=== PATIENT | female | born 1995 | race Caucasian/White ===

== ENCOUNTER 2017-03-05 19:22 | Emergency (ER) | payer OTHER ==
[2017-03-05 19:29] VITALS: RESP 16
[2017-03-05 20:05] LABS: COLOR YELLOW; LEUKOCYTE ESTERASE,URINE NEGATIVE (NEGATIVE); NITRITE,URINE NEGATIVE (NEGATIVE)
--- NOTE | 2017-03-05 20:06 | EDPHY ---
H & P Time Seen by Provider: 03/05/17 19:36 HPI/ROS: CHIEF COMPLAINT: Left-sided back pain HISTORY OF PRESENT ILLNESS: Patient is a 22-year-old female who presents emergency department with left-sided back pain. She can't point to a specific spot that causes her discomfort. She states that is not necessarily associated with movement or back pain. She denies any fevers or chills. No radiation of pain down her leg. She has no dysuria or frequency. No hematuria. No weakness or numbness. No incontinence of urine or stool. REVIEW OF SYSTEMS: My complete review of systems is negative except as mentioned in the HPI. Past Medical/Surgical History: Hypothyroidism, kidney stones Past surgical history: Includes appendectomy Smoking Status: Never smoked Physical Exam: Vitals noted GENERAL: Well-appearing, in no acute distress, alert. HEENT: Eyes normal to inspection, normal pharynx, no signs of dehydration. NECK: No thyromegaly, no lymphadenopathy, supple. RESPIRATORY: Clear to auscultation bilaterally, no rales, rhonchi or wheezing. CVS: Regular rate and rhythm, no rubs, murmurs, or gallops. ABDOMEN: Soft, nontender, nondistended, no organomegaly. BACK: Normal to inspection, no CVA tenderness. Left lower back tenderness palpation of replicates her pain. Is no palpable mass that location. SKIN: Normal color, no rash, warm, dry. No pallor. EXTREMITIES: No pedal edema, no calf tenderness, no Homans sign or cords, no joint swelling. NEURO/PSYCH: Alert and oriented x3, normal mood and affect, normal motor sensory exam. Constitutional: Initial Vital Signs Temperature (C) 37 C 03/05/17 19:26 Heart Rate 79 03/05/17 19:26 Respiratory Rate 16 03/05/17 19:26 Blood Pressure 123/83 H 03/05/17 19:26 O2 Sat (%) 95 03/05/17 19:26 O2 Delivery Mode Room Air Allergies/Adverse Reactions: No Known Allergies Allergy (Verified 03/05/17 19:30) Home Medications: Medication Instructions Recorded Cyclobenzaprine [Flexeril] 10 mg PO TID #15 tab 03/05/17 Hydrocodone/APAP 5/325 [[place] 1 - 2 tab PO Q4 #13 tab 03/05/17 5/325 (RX)] Medical Decision Making ED Course/Re-evaluation: In the emergency department I discussed possible etiologies with the patient. I answered all her questions. A UA was sent. UA negative. I discussed the results with the patient. On repeat exam she appeared comfortable. She had no focal deficits. She had no tenderness of abdomina exam. I gave the patient warnings prior to leaving. She will return with worsening symptoms. Differential Diagnosis: My differential includes but is not limited to urinary tract infection, pyelonephritis, disc herniation, musculoskeletal strain, spinal stenosis, mass, malignancy - Data Points Laboratory Results: 03/05/17 19:40 Urine Color YELLOW Urine Appearance CLEAR Urine pH 7.0 (5.0-7.5) Ur Specific [place] 1.018 (1.002-1.030) Urine Protein NEGATIVE (NEGATIVE) Urine Ketones NEGATIVE (NEGATIVE) Urine Blood NEGATIVE (NEGATIVE) Urine Nitrate NEGATIVE (NEGATIVE) Urine Bilirubin NEGATIVE (NEGATIVE) Urine Urobilinogen NEGATIVE EU EU (0.2-1.0) Ur Leukocyte Esterase NEGATIVE (NEGATIVE) Ur Culture Indicated? NOT INDICATED (NI) Urine Glucose NEGATIVE (NEGATIVE) Departure - Departure Disposition: Home, Routine, Self-Care Clinical Impression: Back pain Qualifiers: Back pain location: low back pain Chronicity: acute Back pain laterality: left Sciatica presence: without sciatica Qualified Code(s): M54.5 - Low back pain Condition: Good Instructions: Acute Low Back Pain (ED) Additional Instructions: Return with increasing back pain, fever, shortness of breath, pain with urination or any other concerns. Referrals: Uzma Hilario MD [Medical Doctor] - 1-2 days without fail Prescriptions: Cyclobenzaprine [Flexeril] 10 mg PO TID #15 tab Hydrocodone/APAP 5/325 [[place] 5/325 (RX)] 1 - 2 tab PO Q4 #13 tab
[2017-03-05 21:55] VITALS: BP 119/77; PULSE 61; TEMP 98.1; O2SAT 96
== END 2017-03-05 21:54 | disposition home or self-care (01) ==
DX: M54.5 Low back pain (principal)

== ENCOUNTER 2017-08-18 20:04 | Emergency (ER) | payer OTHER ==
[2017-08-18 20:10] VITALS: BP 131/83; PULSE 85; RESP 16; TEMP 97.5; O2SAT 96
[2017-08-18] MEDS ORDERED: ONDANSETRON DISINTEGRATING 4 MG TAB PO ONE (20:26)
[2017-08-18] MEDS ORDERED: ONDANSETRON DISINTEGRATING 4 MG TAB ONE (20:26)
[2017-08-18] MEDS ORDERED: ONDANSETRON 4MG PREPACK#2 BTL TAKEHOME ONE (20:28)
--- NOTE | 2017-08-18 20:30 | EDPHY ---
H & P Time Seen by Provider: 08/18/17 20:15 HPI/ROS: CHIEF COMPLAINT: Nausea, diarrhea HISTORY OF PRESENT ILLNESS: 22-year-old female presents with nausea and diarrhea. Onset of nausea at 6:00 p.m. (2hrs ago). She ate after the nausea started and felt worse. This was followed by 1 episode of diarrhea. She also has mild crampy abdominal pain. No fever or vomiting. No known ill contacts or bad food exposure. No recent foreign travel. REVIEW OF SYSTEMS: Constitutional: No fever, no chills Eyes: No drainage ENT: No sore throat Respiratory: No cough, no shortness of breath Cardiac: No chest pain Genitourinary: no dysuria Musculoskeletal: No leg pain or swelling Skin: No rash Neurological: No headache Psychiatric: No depression Past Medical/Surgical History: Appendectomy Social History: Student at [employer] Smoking Status: Never smoked Physical Exam: General Appearance: Alert, pleasant Eyes: Pupils equal and round, no conjunctival pallor ENT, Mouth: Mucous membranes moist Neck: Normal inspection Respiratory: Lungs are clear to auscultation Cardiovascular: Regular rate and rhythm Gastrointestinal: Abdomen is soft and nontender Neurological: alert, nonfocal exam Skin: Warm and dry Extremities: normal inspection Psychiatric: Mood and affect normal Constitutional: Initial Vital Signs Temperature (C) 36.4 C 08/18/17 20:07 Heart Rate 85 08/18/17 20:07 Respiratory Rate 16 08/18/17 20:07 Blood Pressure 131/83 H 08/18/17 20:07 O2 Sat (%) 96 08/18/17 20:07 O2 Delivery Mode Room Air Allergies/Adverse Reactions: No Known Allergies Allergy (Verified 08/18/17 20:10) Home Medications: Medication Instructions Recorded NK [No Known Home Meds] 08/18/17 Medical Decision Making ED Course/Re-evaluation: This patient presents with nausea and diarrhea, most likely secondary to gastroenteritis. Zofran 4 mg ODT given. Abdominal pain precautions given. Differential Diagnosis: Differential diagnosis includes though it is not limited to appendicitis, cholecystitis, diverticulitis, pyelonephritis, bowel perforation, small bowel obstruction. - Data Points Medications Given: Discontinued Medications Ondansetron HCl (Zofran Odt) 4 mg PO EDNOW ONE Stop: 08/18/17 20:27 Last Admin: 08/18/17 20:27 Dose: 4 mg Departure - Departure Disposition: Home, Routine, Self-Care Clinical Impression: Acute gastroenteritis Condition: Good Instructions: Gastroenteritis (ED) Additional Instructions: Clear liquids for 24 hours. Advance diet as tolerated. Take Imodium as needed for diarrhea as directed on the package label. Referrals: Meghann Damico PA [Primary Care Provider] - As per Instructions
== END 2017-08-18 20:42 | disposition home or self-care (01) ==
DX: K52.9 Noninfective gastroenteritis and colitis, unspecified (principal); Z90.49 Acquired absence of other specified parts of digestive tract

== ENCOUNTER 2017-10-14 10:14 | Emergency (ER) | payer OTHER ==
[2017-10-14 10:26] VITALS: RESP 16
[2017-10-14] MEDS ORDERED: NS 1,000 ML IV ONE (10:48)
--- NOTE | 2017-10-14 10:48 | EDPHY ---
General Narrative: CHIEF COMPLAINT: Sore throat, fever, headache, nausea HISTORY OF PRESENT ILLNESS: Patient complains of sore throat, headache, fever, nausea, body aches, chills. Symptoms started yesterday morning abruptly. They have been constant duration. [id number] 1st. Now worsening. Nausea has been improved with leftover Zofran ODT from previous prescription. No neck pain or stiffness. The headache is associated with the cough. The cough is mostly nonproductive. She does have yellow to green sinus drainage. No chest pain. No abdominal pain. No urinary complaints. No other associated complaints or modifying factors. REVIEW OF SYSTEMS: Ten systems reviewed and are negative unless otherwise noted in the HPI PCP: Dr. Damico SPECIALISTS: None PAST MEDICAL HISTORY: Hypothyroid not taking medication PAST SURGICAL HISTORY: Appendectomy remotely SOCIAL HISTORY: Nonsmoker. Currently master's Student in engineering FAMILY HISTORY: Noncontributory EXAMINATION General Appearance: Alert, no distress Head: normocephalic, atraumatic. Head cover left in place Eyes: Pupils equal and round, no conjunctival pallor or injection. No icterus ENT, Mouth: Mucous membranes moist. Mild posterior erythema. Mild exudate. Uvula is midline. Airway is widely patent Neck: Midline trachea. Normal inspection, supple, non-tender. Painless range of motion in all planes. No meningeal signs Respiratory: Lungs are clear to auscultation. No wheezing, rhonchi or crackles Cardiovascular: Regular rate and rhythm. No murmur Gastrointestinal: Abdomen is soft and nontender. No tympany. No rigidity. No distention. Neurological: A&O, nonfocal, strength is symmetric. Skin: Warm and dry, no rash. No petechiae or purpura Extremities: Nontender, no pedal edema. Psychiatric: Mood and affect normal DIFFERENTIAL DIAGNOSES: Including but not limited to influenza, viral illness, strep pharyngitis, infectious mononucleosis, meningitis MDM: 10:40 a.m. Flu-like symptoms with mild tachycardia. She is not tachypneic. She is not hypoxic or hypotensive. She does have an examination match is this. Laboratory studies ordered. Influenza test ordered. She is resting comfortably in no acute distress. 11:30 a.m. Patient re-evaluated. Vital signs stable with mild tachycardia. Laboratory studies reveal mild leukocytosis. Flu test pending. 12:25 p.m. Patient re-evaluated. Throat is still moderately to significantly painful. Mild headache. Neck remains supple without meningismus. Given her leukocytosis and sore throat with erythema and exudate, will treat her presumptively pending the PCR test of the strep pharyngitis. We discussed discharge home with antibiotic, nausea medicine and continuation of over-the- counter anti-inflammatories. She will contact her primary care physician tomorrow for outpatient follow-up. ED precautions discussed for worsening headache, any neck pain or stiffness. She is comfortable this plan and discharged in stable condition. - History Smoking Status: Never smoked - Objective Vital Signs: Initial Vital Signs Temperature (C) 99.3 F 10/14/17 10:23 Heart Rate 107 H 10/14/17 10:23 Respiratory Rate 16 10/14/17 10:23 Blood Pressure 117/72 10/14/17 10:23 O2 Sat (%) 98 10/14/17 10:23 O2 Delivery Mode Room Air Allergies/Adverse Reactions: No Known Allergies Allergy (Verified 08/18/17 20:10) Home Medications: Medication Instructions Recorded Acetaminophen/Codeine 300/30Mg 1 each PO Q6 PRN #15 tab 10/14/17 [Tylenol #3 (*)] Azithromycin [Zithromax] 250 mg PO DAILY #6 tab 10/14/17 Promethazine HCl [Phenergan 25mg 25 mg PO Q8 PRN #13 tab 10/14/17 (*)] Laboratory Results: Laboratory Results 10/14/17 11:05 10/14/17 11:05 10/14/17 10/14/17 10/14/17 Unknown 11:05 11:05 WBC RBC Hgb Hct MCV MCH MCHC RDW Plt Count MPV Neut % (Auto) Lymph % (Auto) White % (Auto) Eos % (Auto) Baso % (Auto) Nucleat RBC Rel Count Absolute Neuts (auto) Absolute Lymphs (auto) Absolute Monos (auto) Absolute Eos (auto) Absolute Basos (auto) Absolute Nucleated RBC Immature Gran % Immature Gran # Sodium Potassium Chloride Carbon Dioxide Anion Gap BUN Creatinine Estimated GFR Glucose Calcium Beta HCG, Qual NEGATIVE Nasal Influenza A PCR NEGATIVE FOR FLU A (NEGATIVE) Nasal Influenza B PCR NEGATIVE FOR FLU B (NEGATIVE) Monoscreen NEGATIVE (NEGATIVE) Group A Strep Screen NEGATIVE (NEGATIVE) Group A Strep DNA Pending 10/14/17 10/14/17 11:05 11:05 WBC 15.53 10^3/uL H 10^3/uL (3.80-9.50) RBC 4.66 10^6/uL 10^6/uL (4.18-5.33) Hgb 14.6 g/dL g/dL (12.6-16.3) Hct 41.5 % % (38.0-47.0) MCV 89.1 fL fL (81.5-99.8) MCH 31.3 pg pg (27.9-34.1) MCHC 35.2 g/dL g/dL (32.4-36.7) RDW 13.2 % % (11.5-15.2) Plt Count 187 10^3/uL 10^3/uL (150-400) MPV 11.7 fL fL (8.7-11.7) Neut % (Auto) 85.3 % H % (39.3-74.2) Lymph % (Auto) 7.7 % L % (15.0-45.0) White % (Auto) 6.2 % % (4.5-13.0) Eos % (Auto) 0.1 % L % (0.6-7.6) Baso % (Auto) 0.2 % L % (0.3-1.7) Nucleat RBC Rel Count 0.0 % % (0.0-0.2) Absolute Neuts (auto) 13.25 10^3/uL H 10^3/uL (1.70-6.50) Absolute Lymphs (auto) 1.20 10^3/uL 10^3/uL (1.00-3.00) Absolute Monos (auto) 0.97 10^3/uL H 10^3/uL (0.30-0.80) Absolute Eos (auto) 0.01 10^3/uL L 10^3/uL (0.03-0.40) Absolute Basos (auto) 0.03 10^3/uL 10^3/uL (0.02-0.10) Absolute Nucleated RBC 0.00 10^3/uL 10^3/uL (0-0.01) Immature Gran % 0.5 % % (0.0-1.1) Immature Gran # 0.07 10^3/uL 10^3/uL (0.00-0.10) Sodium 140 mEq/L mEq/L (134-144) Potassium 4.0 mEq/L mEq/L (3.5-5.2) Chloride 104 mEq/L mEq/L (97-110) Carbon Dioxide 22 mEq/l mEq/l (22-31) Anion Gap 14 mEq/L mEq/L (8-16) BUN 9 mg/dL mg/dL (7-23) Creatinine 0.6 mg/dL mg/dL (0.6-1.0) Estimated GFR > 60 Glucose 90 mg/dL mg/dL (70-100) Calcium 9.7 mg/dL mg/dL (8.5-10.4) Beta HCG, Qual Nasal Influenza A PCR Nasal Influenza B PCR Monoscreen Group A Strep Screen Group A Strep DNA Medications Given: Discontinued Medications Sodium Chloride (Ns) 1,000 mls @ 0 mls/hr IV EDNOW ONE; Wide Open PRN Reason: Protocol Stop: 10/14/17 10:49 Last Admin: 10/14/17 11:09 Dose: 1,000 mls Departure - Departure Disposition: Home, Routine, Self-Care Clinical Impression: Nausea Acute pharyngitis Qualifiers: Pharyngitis/tonsillitis etiology: unspecified etiology Qualified Code(s): J02.9 - Acute pharyngitis, unspecified Headache Qualifiers: Headache type: unspecified Headache chronicity pattern: acute headache Intractability: not intractable Qualified Code(s): R51 - Headache Condition: Good Instructions: Pharyngitis (ED), Acute Headache (ED), Acute Nausea and Vomiting (ED) Additional Instructions: 1. Medication as prescribed to completion 2. Contact primary care physician tomorrow for follow-up this week 3. ED precautions for worsening headache, any onset of neck pain or stiffness, any chest pain Referrals: Meghann Damico PA [Physician Pattern Storage Clerk] - As per Instructions Prescriptions: Acetaminophen/Codeine 300/30Mg [Tylenol #3 (*)] 1 each PO Q6 PRN #15 tab PRN Reason: Pain, Mild Azithromycin [Zithromax] 250 mg PO DAILY #6 tab Promethazine HCl [Phenergan 25mg (*)] 25 mg PO Q8 PRN #13 tab PRN Reason: Nausea/Vomiting, Use 1st
[2017-10-14 11:22] LABS: % IMMATURE GRANULYOCYTES 0.5 % (0.0-1.1); ABSOLUTE IMMATURE GRANULOCYTES 0.07 10^3/uL (0.00-0.10); ADD DIFF? NO; ADD MORPH? NO; ADD SCAN? NO; ATYPICAL LYMPHOCYTE FLAG 0 (0-99); FRAGMENT RBC FLAG 0 (0-99); HEMATOCRIT 41.5 % (38.0-47.0); HEMOGLOBIN 14.6 g/dL (12.6-16.3); LEFT SHIFT FLG 0 (0-99); LIPEMIA HEMOLYSIS FLAG 90 (0-99); MEAN CELL HEMOGLOBIN 31.3 pg (27.9-34.1); MEAN CELL HEMOGLOBIN CONCENTR. 35.2 g/dL (32.4-36.7); MEAN CELL VOLUME 89.1 fL (81.5-99.8); MEAN PLATELET VOLUME 11.7 fL (8.7-11.7); PLATELET CLUMPS FLAG 20 (0-99); PLATELET COUNT 187 10^3/uL (150-400); RED BLOOD CELL COUNT 4.66 10^6/uL (4.18-5.33); RED CELL DISTRIBUTION WIDTH 13.2 % (11.5-15.2)
[2017-10-14 11:27] LABS: STREP SCREEN RAPID NEGATIVE (NEGATIVE)
[2017-10-14 11:32] LABS: ANION GAP 14 mEq/L (8-16); BHCG-QUALITATIVE NEGATIVE; CALCIUM 9.7 mg/dL (8.5-10.4); CARBON DIOXIDE 22 mEq/l (22-31); CHLORIDE 104 mEq/L (97-110); CREATININE 0.6 mg/dL (0.6-1.0); GLOMERULAR FILTRATION RATE > 60; GLUCOSE 90 mg/dL (70-100); MONO TEST NEGATIVE (NEGATIVE); SODIUM 140 mEq/L (134-144)
[2017-10-14 12:48] VITALS: BP 135/88; PULSE 109; TEMP 102.4; O2SAT 94
== END 2017-10-14 12:48 | disposition home or self-care (01) ==
DX: J02.9 Acute pharyngitis, unspecified (principal); R51 Headache; R11.0 Nausea; E86.9 Volume depletion, unspecified